=== PATIENT | male | born 1970 | race Caucasian/White ===

== ENCOUNTER 2016-07-09 17:57 | Emergency (ER) | payer BC ==
[~2016-07-09] VITALS: Ht 165.1 cm; Wt 74.8 kg
[2016-07-09] MEDS ORDERED: ASPIRIN81 MG PO (18:20)
[2016-07-09] MEDS ORDERED: ALTACE2.5 MG PO (18:20)
[2016-07-09] MEDS ORDERED: LIPITOR20 MG PO (18:20)
== END 2016-07-09 19:55 | disposition short-term general hospital (02) ==
LOC: ER 17:57
DX: R51 Headache (principal); E78.5 Hyperlipidemia, unspecified; I10 Essential (primary) hypertension; Z79.82 Long term (current) use of aspirin; Z79.899 Other long term (current) drug therapy
CPT/HCPCS: J1885; J2765